=== PATIENT | male | born 1965 | race Caucasian/White ===

== ENCOUNTER 2020-06-10 09:00 | Inpatient (IN) | payer OTHER ==
[~2020-06-10] VITALS: Ht 177.8 cm; Wt 83.9 kg
[~2020-06-10 09:00] MED LIST: FOLIC ACID 1 MG1 MG PO; KLONOPIN1 MG PO; SILVADENE CREAM20 GM TOP; TAB-A-VITE1 EACH PO; THERAGRAN M TAB1 EA PO; VITAMIN B-1 5050 MG PO; VITAMIN B-1100 M1 PO
[2020-06-10 10:19] LABS: HEMOGLOBIN 12.5 gm/dl (14.0-17.5); RED BLOOD COUNT 3.46 M/UL (4.20-5.50); WHITE BLOOD COUNT 4.3 K/UL (4.5-11.0)
[2020-06-10 11:17] LABS: BUN/CREATININE RATIO 8 (0-10)
--- NOTE | 2020-06-10 20:58 | NUR ---
UPON ENTERING ROOM, PATIENT NOTED TO BE WRITHING AROUND ON BED WITH LEGS DANGLING OVER BEDRAIL, SPEAKING INCOHERENTLY. IV PUMP BEEPING, SAID 'DISTAL OCCLUSION'. UPON INSPECTION, IV TO LEFT AC NOTED TO BE HANGING MCC OUT OF PATIENT'S ARM WITH RED AND BLUE EDEMA NOTED TO LEFT UPPER ARM, ABOVE IV SITE AND LOWER LEFT FOREARM, BELOW IV SITE. IV CLEARLY INFILTRATED. KERLIX REMOVED, IV REMOVED, WARM COMPRESSES APPLIED TO LEFT UPPER ARM, LEFT LOWER ARM, AND LEFT AC. PATIENT GIVEN FULL BED BATH, BED CHANGE, NEW 20G IV INSERTED TO RIGHT FOREARM, JUST ABOVE WRIST BY YENNY RIVERA. PATIENT AGITATED, UNABLE TO SITE STILL THROUGH PROCEDURE. PATIENT IS NOT BEHAVING VIOLENTLY BUT IS VERY VULGAR AND PUSHY WITH ARMS AND ELBOWS. ATIVAN ADMINISTERED PER CIWA PROTOCOL. PATIENT IS CURRENTLY RESTING COMFORTABLY WITH LIGHTS OFF AND CALL MANDEL WITHIN REACH AND BED ALARM IS ON.
[2020-06-11 02:20] LABS: HEMOGLOBIN 11.8 gm/dl (14.0-17.5); RED BLOOD COUNT 3.28 M/UL (4.20-5.50); WHITE BLOOD COUNT 4.3 K/UL (4.5-11.0)
[2020-06-11 02:48] LABS: BUN/CREATININE RATIO 11 (0-10)
--- NOTE | 2020-06-11 14:03 | NUR ---
PT RESTING IN BED, CONFUSED, ATTEMPTS TO GET OUT OF BED FREQUENTLY, WILL REORIENT AND MONITOR NEEDED
[2020-06-12 02:56] LABS: HEMOGLOBIN 11.8 gm/dl (14.0-17.5); RED BLOOD COUNT 3.26 M/UL (4.20-5.50)
[2020-06-12 02:58] LABS: WHITE BLOOD COUNT 5.4 K/UL (4.5-11.0)
[2020-06-12 03:33] LABS: BUN/CREATININE RATIO 11 (0-10)
--- NOTE | 2020-06-12 14:37 | NUR ---
14:15 PT ANXIOUS AND WANTING CATHETER REMOVED, F/C REMOVED WITHOUT COMPLICATIONS, CIWA SCORE OF 11, MEDS GIVEN, VSS, WILL CONTINUE TO MONITOR.
--- NOTE | 2020-06-12 17:43 | NUR ---
1710 PT TRYING TO GET OUT OF BED, CAME OUT OF BOTTOM OF BED BETWEEN THE RAILS, FALLING BACKWARD AND BUMPING HIS HEAD ON THE WALL. 2 NURSES WITNESSED AND COULDN'T GET TO HIM IN TIME DESPITE BOTH BED ALARMS. INFORMED DR HESS OF INCIDENT.
[2020-06-13 04:19] LABS: BUN/CREATININE RATIO 12 (0-10)
[2020-06-13 07:46] LABS: HEMOGLOBIN 11.9 gm/dl (14.0-17.5); RED BLOOD COUNT 3.13 M/UL (4.20-5.50); WHITE BLOOD COUNT 5.2 K/UL (4.5-11.0)
[2020-06-14 04:24] LABS: HEMOGLOBIN 11.7 gm/dl (14.0-17.5); RED BLOOD COUNT 3.26 M/UL (4.20-5.50)
[2020-06-14 04:57] LABS: BUN/CREATININE RATIO 10 (0-10)
--- NOTE | 2020-06-15 00:08 | NUR ---
AT APPROXIMATELY 2300, PT WAS NOTED TO BE SCORING SIGNIFICANTLY HIGHER ON CIWA WITH SCORE OF 8. PT ANXIOUS, RESTLESS, AGITATED, AND MILDLY SWEATING/TREMORING. PT REPEATEDLY GETTING OUT OF BED. PT NOTED TO TURN OWN STRIP ALARM OFF. PT ALMOST FELL ATTEMPTING TO LEAN OUT OF THE BED TO REACH THE CONTROL PANEL TO TURN HIS REGULAR BED ALARM OFF WELL. 2MG TOTAL ATIVAN ADMINSTERED PER CIWA PROTOCOL. SEE CIWA SCORE DOCUMENTATION FOR DETAIL. NOTIFIED, NO NEW ORDERS RECEIVED. SHARAD REYNOSOFACER OPERATOR NOTIFIED AND 1:1 SITTER PULLED TO BEDSIDE TO MONITOR PATIENT FOR HIS SAFETY.
[2020-06-15 08:35] LABS: BUN/CREATININE RATIO 4 (0-10)
[2020-06-16 04:30] LABS: BUN/CREATININE RATIO 4 (0-10)
--- NOTE | 2020-06-16 06:01 | NUR ---
7PM- ATTEMPTED MULTIPLE TIMES DURING MY SHIFT FOR THE PATIENT TO WEAR HIS COMPOSITION MOLDER. PATIENT REFUSES AND INFORMED TELEMETRY THAT HE IS NON COMPLIANT AT THIS TIME.
--- NOTE | 2020-06-17 02:28 | NUR ---
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 WAS NOTIFIED. NO NEW ORDERS OBTAINED AT THIS TIME.
[2020-06-17] MEDS ORDERED: VITAMIN B-1100 M1 PO (10:45)
[2020-06-17] MEDS ORDERED: TAB-A-VITE TA400 MC1 PO (10:45)
== END 2020-06-17 11:03 | disposition left against medical advice (07) | DRG 894 ==
LOC: ER1 09:00 → PROG CARE 11:42 → CDU 11:42 → PROG CARE 14:33 → MED SURG 4 06-13 22:01
PROVIDERS: Emergency Medicine; Internal Medicine; Physician Assistant; ADMIT Internal Medicine
PROC: 8E0ZXY6 Isolation (ICD-10-PCS; principal; 2020-06-10)
DX: F10.139 Alcohol abuse with withdrawal, unspecified (principal); J18.9 Pneumonia, unspecified organism; G93.41 Metabolic encephalopathy; G40.509 Epileptic seizures related to external causes, not intractable, without status epilepticus; D61.818 Other pancytopenia; M62.82 Rhabdomyolysis; F19.10 Other psychoactive substance abuse, uncomplicated; K70.0 Alcoholic fatty liver; E87.6 Hypokalemia; I10 Essential (primary) hypertension; D69.6 Thrombocytopenia, unspecified; T14.8XXA Other injury of unspecified body region, initial encounter; W18.30XA Fall on same level, unspecified, initial encounter; Y92.230 Patient room in hospital as the place of occurrence of the external cause; J44.9 Chronic obstructive pulmonary disease, unspecified; F41.9 Anxiety disorder, unspecified; F17.210 Nicotine dependence, cigarettes, uncomplicated
CPT/HCPCS: 36415; 70450; 71045; 71046; 80048; 80053; 80307; 82550; 82553; 83735; 83874; 84132; 84484; 85025; 85027; 85610; 85730; 93005; 94664; 94760; 96365; 96366; 96368; 96375; 97116-GP-CQ; 97162; 97166; 99285; G0480; J0696; J2060; J2543; J2550; J3411; J3475; J3480; J7030; U0002

== ENCOUNTER 2020-10-17 19:11 | Emergency (ER) | payer OTHER ==
[~2020-10-17 19:11] MED LIST changes: +TAB-A-VITE TA400 MC1 PO
[2020-10-17 19:40] LABS: HEMOGLOBIN 12.9 gm/dl (14.0-17.5); RED BLOOD COUNT 3.67 M/UL (4.20-5.50)
[2020-10-17 20:06] LABS: BUN/CREATININE RATIO 10 (0-10)
[2020-10-17] MEDS ORDERED: IBUPROFEN600 MG PO (23:19)
[2020-10-17] MEDS ORDERED: CEPHALEXIN500 MG PO (23:19)
== END 2020-10-18 07:10 | disposition home or self-care (01) ==
LOC: ER1 19:11
PROVIDERS: Internal Medicine
DX: S01.01XA Laceration without foreign body of scalp, initial encounter (principal); F10.129 Alcohol abuse with intoxication, unspecified; F17.210 Nicotine dependence, cigarettes, uncomplicated; Y90.8 Blood alcohol level of 240 mg/100 ml or more; W22.8XXA Striking against or struck by other objects, initial encounter; Z23 Encounter for immunization
CPT/HCPCS: 12001; 70450; 72125; 80053; 85025; 85610; 85730; 90471; 90714; 90715; 96365; 99284; G0480; J0690

== ENCOUNTER 2021-03-04 08:44 | Inpatient (IN) | payer OTHER ==
[~2021-03-04] VITALS: Ht 177.8 cm; Wt 83.9 kg
[~2021-03-04 08:44] MED LIST changes: +CEPHALEXIN500 MG PO; +IBUPROFEN600 MG PO
[2021-03-04 09:36] LABS: HEMOGLOBIN 13.6 gm/dl (14.0-17.5); RED BLOOD COUNT 3.72 M/UL (4.20-5.50); WHITE BLOOD COUNT 7.7 K/UL (4.5-11.0)
[2021-03-04 10:19] LABS: BUN/CREATININE RATIO 24 (0-10)
[2021-03-05 02:19] LABS: RED BLOOD COUNT 3.34 M/UL (4.20-5.50)
[2021-03-05 02:54] LABS: BUN/CREATININE RATIO 22 (0-10)
[2021-03-06 05:24] LABS: HEMOGLOBIN 10.5 gm/dl (14.0-17.5)
[2021-03-06 05:32] LABS: RED BLOOD COUNT 2.89 M/UL (4.20-5.50); WHITE BLOOD COUNT 5.9 K/UL (4.5-11.0)
[2021-03-06 05:50] LABS: BUN/CREATININE RATIO 22 (0-10)
[2021-03-07 03:37] LABS: BUN/CREATININE RATIO 11 (0-10)
--- NOTE | 2021-03-07 12:01 | NUR ---
PATIENT CALM AND COOPERATIVE. PULLING BARROS AND AT TELEMETRY LINES. HE WANTS OUT OF BED TO GET A "DRINK OF LIQUOR".
[2021-03-08 01:55] LABS: HEMOGLOBIN 11.1 gm/dl (14.0-17.5); RED BLOOD COUNT 3.14 M/UL (4.20-5.50); WHITE BLOOD COUNT 6.1 K/UL (4.5-11.0)
[2021-03-08 02:55] LABS: BUN/CREATININE RATIO 9 (0-10)
[2021-03-09 08:12] LABS: HEMOGLOBIN 10.9 gm/dl (14.0-17.5); RED BLOOD COUNT 3.12 M/UL (4.20-5.50); WHITE BLOOD COUNT 5.9 K/UL (4.5-11.0)
[2021-03-09 08:30] LABS: BUN/CREATININE RATIO 12 (0-10)
[2021-03-10 08:21] LABS: BUN/CREATININE RATIO 12 (0-10)
[2021-03-10] MEDS ORDERED: THERAGRAN M TAB1 EA PO (10:52)
[2021-03-10] MEDS ORDERED: VITAMIN B-1100 M1 PO (10:52)
[2021-03-10] MEDS ORDERED: FOLIC ACID 1 MG1 MG PO (10:52)
== END 2021-03-10 16:23 | disposition home or self-care (01) | DRG 896 ==
LOC: ER1 08:44 → CDU 14:16 → M/S 19:58 → CCU 03-05 16:30 → PROG CARE 03-06 16:31 → MED SURG 4 03-08 16:48
PROVIDERS: Physician Assistant; ADMIT Internal Medicine
DX: F10.239 Alcohol dependence with withdrawal, unspecified (principal); G93.41 Metabolic encephalopathy; J69.0 Pneumonitis due to inhalation of food and vomit; M62.82 Rhabdomyolysis; E87.2 Acidosis; E87.6 Hypokalemia; D64.9 Anemia, unspecified; D69.6 Thrombocytopenia, unspecified; J44.9 Chronic obstructive pulmonary disease, unspecified; F41.9 Anxiety disorder, unspecified; D50.9 Iron deficiency anemia, unspecified; F17.210 Nicotine dependence, cigarettes, uncomplicated; K76.0 Fatty (change of) liver, not elsewhere classified; M79.81 Nontraumatic hematoma of soft tissue; R73.9 Hyperglycemia, unspecified; R68.0 Hypothermia, not associated with low environmental temperature; K70.10 Alcoholic hepatitis without ascites; W18.30XA Fall on same level, unspecified, initial encounter
CPT/HCPCS: 36415; 51702; 70450; 71045; 71260; 80048; 80053; 80307; 81001; 82140; 82550; 82553; 82607; 82746; 82962; 83735; 83874; 83930; 84132; 84484; 85025; 85610; 87040; 92610; 93005; 96374; 97162; 99285; G0480; J2060; J2543; J3411; J3475; J3480; J7030; Q9967; U0002

== ENCOUNTER 2021-03-31 20:14 | Emergency (ER) | payer OTHER ==
[2021-03-31 20:39] LABS: HEMOGLOBIN 13.4 gm/dl (14.0-17.5); RED BLOOD COUNT 3.65 M/UL (4.20-5.50); WHITE BLOOD COUNT 9.4 K/UL (4.5-11.0)
[2021-03-31 22:35] LABS: BUN/CREATININE RATIO 15 (0-10)
== END 2021-04-01 10:03 | disposition home or self-care (01) ==
LOC: ER1 20:14
PROVIDERS: Emergency Medicine
DX: T68.XXXA Hypothermia, initial encounter (principal); F10.10 Alcohol abuse, uncomplicated; D69.6 Thrombocytopenia, unspecified; Z59.00 Homelessness unspecified; F17.200 Nicotine dependence, unspecified, uncomplicated; Z20.822 Contact with and (suspected) exposure to COVID-19; X58.XXXA Exposure to other specified factors, initial encounter
CPT/HCPCS: 70450; 71250; 80053; 81001; 82550; 82553; 83605; 83735; 83874; 84484; 85025; 93005; 99284; G0480; J0456; J0692; J2060; J3411; U0002

== ENCOUNTER 2021-04-09 16:52 | Emergency (ER) | payer OTHER ==
[2021-04-09 18:03] LABS: HEMOGLOBIN 12.8 gm/dl (14.0-17.5); RED BLOOD COUNT 3.71 M/UL (4.20-5.50); WHITE BLOOD COUNT 6.4 K/UL (4.5-11.0)
[2021-04-09 18:33] LABS: BUN/CREATININE RATIO 6 (0-10)
== END 2021-04-10 03:46 | disposition home or self-care (01) ==
LOC: ER1 16:52
PROVIDERS: Physician Assistant
DX: F10.129 Alcohol abuse with intoxication, unspecified (principal)
CPT/HCPCS: 80053; 80307; 82550; 82553; 83874; 84484; 85025; 93005; 96374; 99284; G0480; J3411; J3475; J7030; Q0177